=== PATIENT | female | born 1955 | race Caucasian/White ===

== ENCOUNTER → 2019-10-16 13:04 | Outpatient (CLI) | payer MEDICAID, SELFPAY ==
--- NOTE | 2019-10-16 13:09 | VDLE_ITS ---
Reason For Study: PAIN Procedure LEFT Exam performed in department. GSV is normal. A preliminary report was called and/or faxed CFV is compressible, spontaneous, phasic, to ROSE Meyers. competent, and demonstrates normal augmentation. FV is compressible, spontaneous, phasic, competent and demonstrates normal augmentation. POP V is compressible, spontaneous, phasic, competent and demonstrates normal augmentation. T/P Trunk is compressible. PTV is compressible. LT PerV is compressible. Interpretation Summary Deep veins of the left lower extremity are patent and compressible segmentally. There is no evidence of left lower extremity deep vein thrombosis. Valvular competence appears intact within the proximal deep venous system on the left . The left great saphenous vein appears patent and compressible segmentally. Ordering Physician: Claude Montana Referring Physician: ESDRAS AGUIRRE Performed By: Alessandra Lizarraga, DONNY, RVT
== END ==
PROVIDERS: Family Provider Internal Medicine; PCP Internal Medicine; Referring Provider Nurse Practitioner Primary Care; Visit Provider Nurse Practitioner Primary Care
DX: M79.605 Pain in left leg (principal)
CPT/HCPCS: 93971

== ENCOUNTER → 2020-03-25 | Outpatient (CLI) | payer MEDICAID, SELFPAY ==
--- NOTE | 2020-03-25 07:56 | CDU_ITS ---
Reason For Study: AMAUROSIS FUGAX Rt. Velocities/BP Lt. Velocities/BP Prox CCA 79.0/20.3 cm/sec. Prox CCA 86.3/22.6 cm/sec. Mid CCA 73.8/21.6 cm/sec. Mid CCA 66.6/20.4 cm/sec. Dist CCA 77.7/17.7 cm/sec. Dist CCA 67.7/22.6 cm/sec. Prox ICA 47.1/16.9 cm/sec. Prox ICA 80.9/31.4 cm/sec. Mid ICA 73.6/27.3 cm/sec. Mid ICA 83.1/36.9 cm/sec. Dist ICA 71.7/28.2 cm/sec. Dist ICA 79.8/24.8 cm/sec. Rt. ICA/CCA = 73.6/79.0=0.9. Lt. ICA/CCA = 83.1/86.3=1.0. Prox ECA 94.7/24.3 cm/sec. Prox ECA 93.0/18.2 cm/sec. Rt. Vert. 43.4/13.1 cm/sec. Lt. Vert. 53.8/15.0 cm/sec. Right Extracranial There is intimal thickening but no significant atherosclerotic plaque noted in the right common carotid artery. There is intimal thickening but no significant atherosclerotic plaque noted in the right internal carotid artery. There is no significant atherosclerotic plaque noted in the right external carotid artery. Antegrade flow is noted in the right vertebral artery. Left Extracranial There is intimal thickening but no significant atherosclerotic plaque noted in the left common carotid artery. There is heterogeneous, irregular atherosclerotic plaque noted in the left internal carotid artery. Antegrade flow is noted in the left vertebral artery. There is heterogeneous, irregular atherosclerotic plaque noted in the left bulb. Procedure Carotid Duplex 29124. The exam was diagnostic. Exam performed in department. Interpretation Summary No significant atherosclerotic plaque or stenosis noted in the right internal carotid artery. Mild (<50%) stenosis left extracranial internal carotid. Flow within the vertebral arteries is antegrade bilaterally. Heterogeneous, irregular, atherosclerotic plaque is noted in the left carotid bulb, which does not appear to be hemodynamically significant. Ordering Physician: Eusebio Poon Referring Physician: Cristal Yanez Performed By: Lauren Altman, DONNY, RVT
== END | disposition home or self-care (01) ==
PROVIDERS: PCP Internal Medicine; Referring Provider Ophthalmology; Visit Provider Ophthalmology
DX: G45.3 Amaurosis fugax (principal)
CPT/HCPCS: 93880